=== PATIENT | male | born 1945 | race Caucasian/White ===

== ENCOUNTER 2024-06-23 14:49 | Emergency (ER) | payer MEDICARE, OTHER ==
[~2024-06-23] VITALS: Ht 170.2 cm; Wt 75.5 kg
[2024-06-23 18:16] VITALS: BP 162/79; TEMP 96.1; O2SAT 99
[2024-06-23] MEDS: BOOSTRIX VACCINE (TETANUS/DIPHTH/ACEL. PERTUSSIS) 0.5ML SYR IM ONE (19:10)
[2024-06-26] MEDS ORDERED: AMLO1TAB24 (12:05)
[2024-06-26] MEDS ORDERED: ATOR80TA59 (12:05)
== END 2024-06-23 19:23 | disposition home or self-care (01) ==
LOC: M ED 14:49
DX: S81.852A Open bite, left lower leg, initial encounter (principal); Y92.830 Public park as the place of occurrence of the external cause; Y93.9 Activity, unspecified; Y99.9 Unspecified external cause status; W54.0XXA Bitten by dog, initial encounter; I25.119 Atherosclerotic heart disease of native coronary artery with unspecified angina pectoris; I25.2 Old myocardial infarction; I10 Essential (primary) hypertension; F10.10 Alcohol abuse, uncomplicated; Z23 Encounter for immunization